=== PATIENT | male | born 1960 | race Caucasian/White ===

== ENCOUNTER 2021-02-02 08:08 | Day surgery (SDC) | payer OTHER ==
[2021-01-31 14:02] LABS: COVID AG,FIA SOURCE NASOPHARYNGEAL
[2021-01-31 14:04] LABS: EOSINOPHILS % (AUTO) 6.6 % (1.0-6.0); HEMATOCRIT 43.4 % (41-53); HEMOGLOBIN 14.4 g/dL (13.5-17.5); LYMPHOCYTES # (AUTO) 0.8 K/uL (1.0-4.8); LYMPHOCYTES % (AUTO) 19.1 % (22.0-44.0); MEAN CORPUSCULAR HEMOGLOBIN 26.4 pg (26.0-34.0); MEAN CORPUSCULAR HGB CONC 33.2 G/dL (31.0-37.0); MEAN CORPUSCULAR VOLUME 80 fL (80-100); MONOCYTES # (AUTO) 0.5 K/uL (0.1-1.0); MONOCYTES % (AUTO) 13.1 % (2.0-9.0); NEUTROPHILS # (AUTO) 2.5 K/uL (1.8-7.7); NEUTROPHILS % (AUTO) 60.2 % (40.0-70.0); PLATELET COUNT (AUTO) 128 K/uL (150-450); RED BLOOD CELL COUNT(AUTO) 5.45 MIL/uL (4.50-5.90); RED CELL DISTRIBUTION WIDTH 14.6 % (11.5-14.5)
[2021-01-31 14:19] LABS: ALANINE AMINOTRANSFERASE 37 U/L (12-78); ALBUMIN 3.5 g/dL (3.4-5.0); ALKALINE PHOSPHATASE 93 U/L (46-116); ANION GAP 9 mmol/L (8-16); ASPARTATE AMINOTRANSFERASE 23 U/L (15-37); BILIRUBIN,TOTAL 0.6 mg/dL (0.1-1.0); CALCIUM, TOTAL 8.9 mg/dL (8.8-10.5); CARBON DIOXIDE 26 mmol/L (22-29); CHLORIDE 101 mmol/L (98-107); CREATININE 0.96 mg/dL (0.60-1.30); GLOMERULAR FILTR. RATE CALC > 60 mL/min (>60); POTASSIUM 4.8 mmol/L (3.5-5.1); SODIUM SERUM 136 mmol/L (136-145); TOTAL PROTEIN, SERUM 7.4 g/dL (6.4-8.2); UREA NITROGEN, BLOOD 19 mg/dL (7-18)
[2021-01-31 14:31] LABS: GLUCOSE,RANDOM 458 mg/dL (70-110)
[2021-01-31 14:47] LABS: PROTHROMBIN TIME 10.7 SEC (9.4-11.6)
[~2021-02-02] VITALS: Ht 182.9 cm; Wt 94.1 kg
[~2021-02-02 08:08] MED LIST: SODIUM CHLORIDE 0.9% 1,000 ML IV ONE; SODIUM CHLORIDE 0.9% 1,000 ML ONE
[2021-02-02] MEDS ORDERED: INSLAN SQ (09:21)
[2021-02-02] MEDS ORDERED: SITA100 PO (09:21)
[2021-02-02] MEDS ORDERED: ASPI81TA87 PO (09:21)
[2021-02-02] MEDS ORDERED: METO50 PO (09:21)
[2021-02-02] MEDS ORDERED: METF-960 PO (09:21)
[2021-02-02] MEDS ORDERED: BENA5TAB26 PO (09:21)
[2021-02-02] MEDS ORDERED: CLOP75TA60 PO (09:21)
[2021-02-02 09:40] LABS: GLUCOMETER DEV NAME(LOC) SDS.; GLUCOSE,POINT OF CARE 324 MG/DL (70-110)
[2021-02-02] MEDS ORDERED: SODIUM BICARBONATE 50 MEQ/50 ML VIAL ONE (11:31)
[2021-02-02] MEDS ORDERED: LIDOCAINE/PF 1% 30 ML VIAL ONE (11:31)
[2021-02-02] MEDS ORDERED: HEPARIN SODIUM 1000 UNITS/NS 500 ML ONE (11:32)
[2021-02-02] MEDS ORDERED: IOHEXOL 300 MG/ML 100 ML VIAL ONE (11:32)
[2021-02-02] MEDS ORDERED: HEPARIN SODIUM 1000 UNITS/NS 1,000 ML ONE (11:52)
[2021-02-02] MEDS ORDERED: IOHEXOL 300 MG/ML 50 ML VIAL ONE (11:53)
[2021-02-02 12:05] VITALS: BP 137/79
[2021-02-02] MEDS ORDERED: FentaNYL CITRATE PF 100 MCG/2 ML VIAL ONE (12:23)
[2021-02-02] MEDS ORDERED: MIDAZOLAM HCL 2 MG/2 ML VIAL ONE (12:23)
[2021-02-02] MEDS ORDERED: IOHEXOL 300 MG/ML 100 ML VIAL IARTER ONE (12:30)
[2021-02-02] MEDS ORDERED: LIDOCAINE 1% 30 ML/SOD BICARB 8.4% 4 ML SQ ONE (12:30)
[2021-02-02] MEDS ORDERED: SODIUM CHLORIDE 0.9% 500 ML IV ONE (12:30)
[2021-02-02] MEDS ORDERED: FentaNYL CITRATE PF 100 MCG/2 ML VIAL IVP ONE ×2 (12:30)
[2021-02-02] MEDS ORDERED: IOHEXOL 300 MG/ML 50 ML VIAL IARTER ONE (12:30)
[2021-02-02] MEDS ORDERED: HEPARIN SODIUM 1000 UNITS/NS 1,000 ML IARTER ONE (12:30)
[2021-02-02] MEDS ORDERED: MIDAZOLAM HCL 2 MG/2 ML VIAL IVP ONE (12:30)
[2021-02-02] MEDS ORDERED: ADENOSINE 3 MG/ML 2 ML VIAL ONE (12:56)
[2021-02-02 13:25] VITALS: BP 136/84
[2021-02-02] MEDS ORDERED: HEPARIN SODIUM,PORCINE 5,000 UNITS/ML VIAL IVP ONE (13:30)
== END 2021-02-02 15:40 | disposition home or self-care (01) ==
LOC: CATHLAB 08:08
PROVIDERS: ATTEND Internal Medicine Cardiovascular Disease
DX: R94.39 Abnormal result of other cardiovascular function study (principal); I25.719 Atherosclerosis of autologous vein coronary artery bypass graft(s) with unspecified angina pectoris; I11.0 Hypertensive heart disease with heart failure; I50.9 Heart failure, unspecified; J44.9 Chronic obstructive pulmonary disease, unspecified; E78.5 Hyperlipidemia, unspecified; E11.9 Type 2 diabetes mellitus without complications; I25.2 Old myocardial infarction; F43.10 Post-traumatic stress disorder, unspecified; Z95.1 Presence of aortocoronary bypass graft; Z20.822 Contact with and (suspected) exposure to COVID-19; Z79.899 Other long term (current) drug therapy; Z79.82 Long term (current) use of aspirin; Z79.4 Long term (current) use of insulin
CPT/HCPCS: 36415; 80053; 82962; 85025; 85610; 85730; 87426; 93005; 93459; 99152; 99153; C1757; C1760; C9803; J0153; J1644; J2250; J3010; J3490 ×2; J7030; Q9967 ×2